=== PATIENT | female | born 1940 | race Hispanic/Latino ===

== ENCOUNTER 2018-06-21 10:07 | Day surgery (SDC) | payer MEDICARE, BC ==
[2018-06-21 10:49] VITALS: O2SAT 98
[2018-06-21 11:10] VITALS: BMI 26.5
[2018-06-21] MEDS ORDERED: Lidocaine Hydrochloride 1% 10 ML ONE (12:22)
--- NOTE | 2018-06-21 12:55 | CP.SDSHP ---
Same Day Surgery H & P - History Proposed Procedure: US guided FNA of left thyroid nodule Pre-Op Diagnosis: left thyroid nodule - Allergies Allergies: Allergies ranitidine [From Zantac] Allergy (Verified 06/21/18 10:51) SWELLING Sulfa (Sulfonamide Antibiotics) Allergy (Verified 03/19/15 17:31) RASH - Physical Exam Vital Signs: Vital Signs 06/21/18 06/21/18 06/21/18 10:46 11:19 12:28 Temperature 98.2 F 98.4 F Pulse Rate 58 L 60 Respiratory 16 16 18 Rate Blood Pressure 144/56 L 142/70 O2 Sat by Pulse 98 Oximetry 06/21/18 12:53 Temperature Pulse Rate 62 Respiratory 18 Rate Blood Pressure 138/70 O2 Sat by Pulse Oximetry Mental Status: Alert & Oriented x3 - Impression Impression: Pt with a mixed solid and cystic left thyroid nodule. Plan US guideD FNA. Pt. Evaluated Today:Candidate for Anesthesia & Procedure: No - Date & Time Date: 06/21/18 Time: 12:50 Short Stay Discharge - Short Stay Discharge Admitting Diagnosis/Reason for Visit: E04.1 Referrals: Claudy Chavez MD [Primary Care Provider] -
--- NOTE | 2018-06-21 12:57 | PCM.SURG1 ---
Surgeon's Initial Post Op Note - Surgeon's Notes Surgeon: Celestine Meehan MD Eap Consultant: NONE Type of Anesthesia: Local Pre-Operative Diagnosis: left thyroid nodule Operative Findings: Complex mixed solid and cystic left thyroid nodule Post-Operative Diagnosis: left thyroid nodule Operation Performed: US guided FNA Specimen/Specimens Removed: 25 g x 5 passes Estimated Blood Loss: EBL {In ML}: 1 Blood Products Given: N/A Drains Used: No Drains Date of Surgery/Procedure: 06/21/18 Time of Surgery/Procedure: 12:50
[2018-06-21 13:23] VITALS: BP 159/58; PULSE 63; RESP 20; TEMP 98.6
== END 2018-06-21 13:50 | disposition home or self-care (01) ==
LOC: H.OPSURG 10:07
PROVIDERS: ATTEND Internal Medicine Endocrinology, Diabetes & Metabolism
DX: E04.2 Nontoxic multinodular goiter (principal)